=== PATIENT | female | born 1945 | race Caucasian/White ===

== ENCOUNTER 2020-10-30 13:14 | Inpatient (IN) | payer OTHER, MEDICAID ==
[~2020-10-30] VITALS: Ht 157.5 cm; Wt 58.5 kg
[2020-10-30] MEDS ORDERED: PIPERACILLIN/TAZ 3.375G PREMIX 100 ML IV ONE (15:30)
[2020-10-30] MEDS ORDERED: SODIUM CHLORIDE 0.9% 500 ML IV ONE (15:30)
[2020-10-30 16:34] LABS: BG BASE EXCESS -4.3 mmol/L (-2.0-2.0); BG CARBOXYHEMOGLOBIN 0.6 % (0.5-1.5); BG DEOXYHEMOGLOBIN 6.8 % (0.0-5.0); BG HCO3 ACT 17.4 mmol/L (22.0-26.0); BG METHEMOGLOBIN 0.3 % (0.0-1.5); BG OXYGEN SATURATION 93.1 % (92.0-98.5); BG OXYHEMOGLOBIN 92.3 % (94.0-97.0); BG PCO2 23.4 mmHg (35.0-45.0); BG PH 7.488 (7.350-7.450); BG PO2 65.2 mmHg (75.0-100.0); BG SAMPLE SITE RIGHT RADIAL; BG TOTAL HEMOGLOBIN 12.6 g/dL (12.0-18.0); BG VENT MODE ROOM AIR
[2020-10-30 19:24] LABS: BASOPHILS % 0.7 % (0.0-2.0); EOSINOPHILS % 0.3 % (0.0-5.0); HEMATOCRIT. 33.5 % (36.0-48.0); LYMPHOCYTES % 11.4 % (20.0-50.0); MEAN CORPUSCULAR HEMOGLOBIN 31.4 pg (28.0-32.0); MEAN CORPUSCULAR VOLUME 95.6 fL (81.0-99.0); MEAN PLATELET VOLUME 11.5 fl (7.4-10.4); MONOCYTES % 4.1 % (2.0-8.0); NEUTROPHILS % 83.5 % (40.0-76.0); PLATELET 122 x1000/uL (130-400); RED CELL DISTRIBUTION WIDTH 17.7 % (11.6-14.6)
[2020-10-30 19:27] LABS: CHLORIDE 97 mEq/L (98-107)
[2020-10-30 19:29] LABS: INR 1.2; PROTHROMBIN TIME 12.6 sec (9.6-11.0)
[2020-10-30 19:33] LABS: PHOSPHORUS 2.2 mg/dL (2.5-4.9)
[2020-10-31] MEDS ORDERED: CEFTRIAXONE 1 G PREMIX 50 ML IV SCH (09:45)
[2020-10-31] MEDS ORDERED: DEXTROSE 50% WATER 50ML SYRINGE IV PRN (09:45)
[2020-10-31] MEDS ORDERED: ONDANSETRON HCL 4MG/2ML INJ IV PRN (09:45)
[2020-10-31] MEDS ORDERED: ACETAMINOPHEN 325MG TABLET PO PRN (09:45)
[2020-10-31] MEDS: CEFTRIAXONE 1,000 MG in DEXTROSE 5% WATER 50 ML IV SCH (11:00)
[2020-10-31] MEDS ORDERED: ENOXAPARIN 40MG/0.4ML SYR SUBCUT SCH (12:00)
[2020-10-31] MEDS: INSULIN LISPRO 100 UNITS/ML SUBCUT SCH (12:00)
[2020-10-31 12:34] LABS: BASOPHILS % 0.4 % (0.0-2.0); EOSINOPHILS % 0.5 % (0.0-5.0); HEMATOCRIT. 31.3 % (36.0-48.0); HEMOGLOBIN. 10.3 g/dL (12.0-16.0); LYMPHOCYTES % 10.4 % (20.0-50.0); MEAN CORPUSCULAR HEMOGLOBIN 31.3 pg (28.0-32.0); NEUTROPHILS % 82.7 % (40.0-76.0); PLATELET 125 x1000/uL (130-400); RED BLOOD CELL COUNT 3.29 mill/uL (4.2-5.4); RED CELL DISTRIBUTION WIDTH 17.9 % (11.6-14.6)
[2020-10-31 12:40] LABS: CHLORIDE 96 mEq/L (98-107)
[2020-10-31 13:23] LABS: CREATINE KINASE 189 IU/L (26-192)
[2020-10-31 13:24] LABS: CREATINE KINASE MB FRACTION 2.3 ng/mL (0.5-3.6)
[2020-10-31] MEDS: BLOOD SUGAR DIAGNOSTIC STRIP TEST SCH ×2 (13:48→17:00)
[2020-10-31] MEDS ORDERED: VANCOMYCIN 1 G PREMIX 200 ML IV SCH (16:00)
[2020-10-31] MEDS: SODIUM CHLORIDE 0.9% 1,000 ML IV SCH (16:00)
[2020-10-31] MEDS ORDERED: MAGNESIUM 2 G PREMIX 50 ML IV SCH (16:00)
[2020-10-31] MEDS ORDERED: SODIUM PHOS,M-BASIC-D-BASIC 10 MM in DEXT 5% WATER 246.6667 ML IV SCH (17:00)
[2020-10-31] MEDS ORDERED: ENOXAPARIN 60MG/0.6ML SYR SUBCUT SCH (18:15)
[2020-11-01 00:40] LABS: CREATINE KINASE 90 IU/L (26-192)
[2020-11-01 00:41] LABS: CREATINE KINASE MB FRACTION < 1.0 ng/mL (0.5-3.6)
[2020-11-01] MEDS ORDERED: VANCOMYCIN 500 MG PREMIX 100 ML IV SCH (04:00)
[2020-11-01 08:47] LABS: BASOPHILS % 0.3 % (0.0-2.0); EOSINOPHILS % 0.1 % (0.0-5.0); HEMATOCRIT. 26.9 % (36.0-48.0); HEMOGLOBIN. 9.1 g/dL (12.0-16.0); LYMPHOCYTES % 7.7 % (20.0-50.0); MEAN CORPUSCULAR HEMOGLOBIN 31.8 pg (28.0-32.0); MEAN PLATELET VOLUME 10.4 fl (7.4-10.4); MONOCYTES % 8.9 % (2.0-8.0); PLATELET 112 x1000/uL (130-400); RED BLOOD CELL COUNT 2.86 mill/uL (4.2-5.4); RED CELL DISTRIBUTION WIDTH 17.6 % (11.6-14.6)
[2020-11-01 08:59] LABS: CHLORIDE 104 mEq/L (98-107)
[2020-11-01 09:09] LABS: PHOSPHORUS 2.9 mg/dL (2.5-4.9)
[2020-11-01 09:10] LABS: LDL CHOLESTEROL 68 mg/dL (5-100)
[2020-11-01 09:11] LABS: HDL CHOLESTEROL 37 mg/dL (40-59)
[2020-11-01] MEDS ORDERED: POTASSIUM CHLORIDE 20MEQ TABLET SR PO NR (13:00)
[2020-11-01] MEDS ORDERED: MAGNESIUM 2 G PREMIX 50 ML IV NR (13:00)
[2020-11-01] MEDS: CEFTRIAXONE 1,000 MG in DEXTROSE 5% WATER 50 ML IV SCH (13:04)
[2020-11-01] MEDS: BLOOD SUGAR DIAGNOSTIC STRIP TEST SCH (18:58)
[2020-11-01] MEDS: VANCOMYCIN 500 MG PREMIX 100 ML IV SCH (21:00)
[2020-11-02] MEDS: INSULIN LISPRO 100 UNITS/ML SUBCUT SCH ×4 (01:37→21:03)
[2020-11-02] MEDS: BLOOD SUGAR DIAGNOSTIC STRIP TEST SCH ×3 (07:26→21:03)
[2020-11-02] MEDS: ENOXAPARIN 40MG/0.4ML SYR SUBCUT SCH ×2 (08:03→21:02)
[2020-11-02] MEDS: VANCOMYCIN 500 MG PREMIX 100 ML IV SCH ×2 (10:05→22:30)
[2020-11-02 13:10] VITALS: BP 103/59
[2020-11-02 16:00] VITALS: BP 97/56
[2020-11-02] MEDS ORDERED: POTASSIUM CHLORIDE 20MEQ TABLET SR PO NR (17:00)
[2020-11-02] MEDS: CEFTRIAXONE 1,000 MG in DEXTROSE 5% WATER 50 ML IV SCH (17:01)
[2020-11-02] MEDS: SODIUM CHLORIDE 0.9% 1,000 ML IV SCH ×2 (17:02→17:46)
[2020-11-02] MEDS ORDERED: MAGNESIUM 2 G PREMIX 50 ML IV NR (17:30)
[2020-11-02 18:00] VITALS: BP 103/59
[2020-11-02] MEDS ORDERED: CALCIUM GLUCONATE 1GM PREMIX 50 ML IV NR (18:00)
[2020-11-02 20:00] VITALS: BP 116/56
[2020-11-03] VITALS: BP 110/55
[2020-11-03] MEDS: CEFAZOLIN 1000MG PREMIX 50 ML IV SCH ×4 (00:02→23:34)
[2020-11-03 04:00] VITALS: BP 90/56
[2020-11-03] MEDS: BLOOD SUGAR DIAGNOSTIC STRIP TEST SCH ×4 (06:03→21:14)
[2020-11-03 06:21] LABS: CHLORIDE 107 mEq/L (98-107)
[2020-11-03] MEDS: INSULIN LISPRO 100 UNITS/ML SUBCUT SCH ×4 (06:31→21:00)
[2020-11-03 08:00] VITALS: BP 103/55
[2020-11-03] MEDS: SODIUM CHLORIDE 0.9% 1,000 ML IV SCH ×3 (09:20→23:34)
[2020-11-03 12:00] VITALS: BP 106/50
[2020-11-03 16:00] VITALS: BP 107/38
[2020-11-03 20:00] VITALS: BP 124/59
[2020-11-03] MEDS: ENOXAPARIN 40MG/0.4ML SYR SUBCUT SCH (21:13)
[2020-11-04] VITALS (7 sets, daily range): BP systolic 100–121; BP diastolic 46–90
[2020-11-04] MEDS: BLOOD SUGAR DIAGNOSTIC STRIP TEST SCH ×4 (06:21→20:48)
[2020-11-04] MEDS: INSULIN LISPRO 100 UNITS/ML SUBCUT SCH ×4 (06:22→20:49)
[2020-11-04] MEDS: CEFAZOLIN 1000MG PREMIX 50 ML IV SCH ×3 (06:32→23:30)
[2020-11-04] MEDS ORDERED: LIDOCAINE HCL 1% 20ML VIAL (Pyxis) INJ ONE (07:47)
[2020-11-04] MEDS ORDERED: SODIUM BICARBONATE 4% (2.4MEQ) 5ML VIAL IV ONE (07:47)
[2020-11-04 07:52] LABS: BASOPHILS % 0.7 % (0.0-2.0); EOSINOPHILS % 0.9 % (0.0-5.0); HEMATOCRIT. 23.8 % (36.0-48.0); HEMOGLOBIN. 7.9 g/dL (12.0-16.0); LYMPHOCYTES % 18.4 % (20.0-50.0); MEAN CORPUSCULAR HEMOGLOBIN 31.3 pg (28.0-32.0); MEAN CORPUSCULAR VOLUME 94.5 fL (81.0-99.0); MEAN PLATELET VOLUME 10.3 fl (7.4-10.4); MONOCYTES % 12.4 % (2.0-8.0); NEUTROPHILS % 67.6 % (40.0-76.0); PLATELET 83 x1000/uL (130-400); RED BLOOD CELL COUNT 2.52 mill/uL (4.2-5.4); RED CELL DISTRIBUTION WIDTH 17.6 % (11.6-14.6)
[2020-11-04 08:23] LABS: CHLORIDE 112 mEq/L (98-107)
[2020-11-04] MEDS: SODIUM CHLORIDE 0.9% 1,000 ML IV SCH (13:30)
[2020-11-04] MEDS: ENOXAPARIN 40MG/0.4ML SYR SUBCUT SCH (20:21)
[2020-11-05] VITALS: BP 139/62
[2020-11-05] MEDS: SODIUM CHLORIDE 0.9% 1,000 ML IV SCH ×2 (03:21→16:13)
[2020-11-05 04:00] VITALS: BP 124/51
[2020-11-05] MEDS: BLOOD SUGAR DIAGNOSTIC STRIP TEST SCH ×4 (06:45→22:11)
[2020-11-05] MEDS: INSULIN LISPRO 100 UNITS/ML SUBCUT SCH ×4 (07:15→22:11)
[2020-11-05] MEDS: CEFAZOLIN 1000MG PREMIX 50 ML IV SCH ×3 (08:09→23:27)
[2020-11-05] MEDS ORDERED: POTASSIUM CHLORIDE 20MEQ TABLET SR PO SCH (13:00)
[2020-11-05] MEDS ORDERED: MAGNESIUM 2 G PREMIX 50 ML IV SCH (14:00)
[2020-11-05 20:00] VITALS: BP 119/53
[2020-11-06] VITALS: BP 128/59
[2020-11-06 04:00] VITALS: BP 121/62
[2020-11-06] MEDS: CEFAZOLIN 1000MG PREMIX 50 ML IV SCH ×3 (07:01→22:35)
[2020-11-06] MEDS: INSULIN LISPRO 100 UNITS/ML SUBCUT SCH ×4 (07:01→21:02)
[2020-11-06] MEDS: BLOOD SUGAR DIAGNOSTIC STRIP TEST SCH ×4 (07:02→21:03)
[2020-11-06 07:29] LABS: HEMATOCRIT. 22.4 % (36.0-48.0); HEMOGLOBIN. 7.5 g/dL (12.0-16.0); MEAN CORPUSCULAR HEMOGLOBIN 31.4 pg (28.0-32.0); MEAN CORPUSCULAR VOLUME 94.2 fL (81.0-99.0); MEAN PLATELET VOLUME 10.3 fl (7.4-10.4); PLATELET 81 x1000/uL (130-400); RED BLOOD CELL COUNT 2.38 mill/uL (4.2-5.4); RED CELL DISTRIBUTION WIDTH 17.6 % (11.6-14.6)
[2020-11-06 07:46] LABS: CHLORIDE 109 mEq/L (98-107)
[2020-11-06 07:57] LABS: PHOSPHORUS 1.4 mg/dL (2.5-4.9)
[2020-11-06 08:00] VITALS: BP 119/64
[2020-11-06] MEDS ORDERED: POTASSIUM CHLORIDE 20MEQ TABLET SR PO SCH (10:00)
[2020-11-06 12:00] VITALS: BP 112/61
[2020-11-06 16:00] VITALS: BP 121/68
[2020-11-06 20:00] VITALS: BP 119/62
[2020-11-06] MEDS ORDERED: POTASSIUM CHLORIDE 20MEQ TABLET SR PO NR (22:00)
[2020-11-06 22:56] LABS: NUCLEATED RED BLOOD CELLS 1 /100 WBC
[2020-11-06 22:57] LABS: PLATELET ESTIMATE DECREASED
[2020-11-06] MEDS ORDERED: DEXT 5% IV NR (23:00)
[2020-11-06] MEDS ORDERED: WATER IV NR (23:00)
[2020-11-06] MEDS ORDERED: POTASSIUM PHOS M BASIC D BASIC IV NR (23:00)
[2020-11-07] VITALS: BP 109/59
[2020-11-07 04:00] VITALS: BP 107/50
[2020-11-07] MEDS: INSULIN LISPRO 100 UNITS/ML SUBCUT SCH ×4 (07:12→20:56)
[2020-11-07] MEDS: BLOOD SUGAR DIAGNOSTIC STRIP TEST SCH ×4 (07:12→20:38)
[2020-11-07 08:00] VITALS: BP 113/61
[2020-11-07 08:07] LABS: KAPPA LT CHAINS FREE SERUM 22.5 mg/L (3.3-19.4); KAPPA/LAMBDA RATIO 0.51 (0.26-1.65)
[2020-11-07] MEDS: CEFAZOLIN 1000MG PREMIX 50 ML IV SCH ×3 (09:30→23:07)
[2020-11-07 12:00] VITALS: BP 130/84
[2020-11-07 16:00] VITALS: BP 104/60
[2020-11-07] MEDS ORDERED: ASPI-1497 MT (16:18)
[2020-11-07] MEDS ORDERED: ALPR0.25 MT (16:18)
[2020-11-07] MEDS ORDERED: LISI40TA4 MT (16:26)
[2020-11-07] MEDS ORDERED: ATOR40TA70 MT (16:26)
[2020-11-07] MEDS ORDERED: METF-416 MT (16:26)
[2020-11-07] MEDS ORDERED: HYDR-4067 MT (16:26)
[2020-11-07] MEDS ORDERED: OXYB5TAB17 MT (16:29)
[2020-11-07] MEDS ORDERED: OMEP20CA14 MT (16:30)
[2020-11-07 20:00] VITALS: BP 100/38
[2020-11-08] VITALS: BP 113/92
[2020-11-08 04:00] VITALS: BP 118/64
[2020-11-08] MEDS: BLOOD SUGAR DIAGNOSTIC STRIP TEST SCH ×4 (05:41→21:31)
[2020-11-08] MEDS: INSULIN LISPRO 100 UNITS/ML SUBCUT SCH ×4 (06:32→21:48)
[2020-11-08 08:00] VITALS: BP 108/61
[2020-11-08] MEDS: CEFAZOLIN 1000MG PREMIX 50 ML IV SCH ×2 (09:18→14:45)
[2020-11-08 12:00] VITALS: BP 113/60
[2020-11-08 16:00] VITALS: BP 107/68
[2020-11-08 20:00] VITALS: BP 119/44
[2020-11-09] VITALS: BP 100/55
[2020-11-09] MEDS: CEFAZOLIN 1000MG PREMIX 50 ML IV SCH ×4 (02:42→23:35)
[2020-11-09 04:00] VITALS: BP 103/60
[2020-11-09] MEDS: BLOOD SUGAR DIAGNOSTIC STRIP TEST SCH ×4 (06:38→21:43)
[2020-11-09] MEDS: INSULIN LISPRO 100 UNITS/ML SUBCUT SCH ×4 (06:38→21:42)
[2020-11-09 08:00] VITALS: BP 125/62
[2020-11-09 12:00] VITALS: BP 121/79
[2020-11-09 16:00] VITALS: BP 119/66
[2020-11-09 20:00] VITALS: BP 108/63
[2020-11-10] VITALS: BP 109/67
[2020-11-10 04:00] VITALS: BP 110/64
[2020-11-10] MEDS: INSULIN LISPRO 100 UNITS/ML SUBCUT SCH ×4 (06:38→21:00)
[2020-11-10] MEDS: BLOOD SUGAR DIAGNOSTIC STRIP TEST SCH ×4 (06:38→21:39)
[2020-11-10] MEDS: CEFAZOLIN 1000MG PREMIX 50 ML IV SCH ×2 (06:39→15:30)
[2020-11-10 08:00] VITALS: BP 98/57
[2020-11-10] MEDS ORDERED: IXAZ3CAP PO (08:40)
[2020-11-10] MEDS ORDERED: LENA15CA2 PO (08:40)
[2020-11-10] MEDS ORDERED: DEXA4TAB PO (08:40)
[2020-11-10 12:00] VITALS: BP 131/61
[2020-11-10 16:00] VITALS: BP 126/74
[2020-11-10 20:00] VITALS: BP 113/58
[2020-11-11] MEDS: CEFAZOLIN 1000MG PREMIX 50 ML IV SCH ×3 (00:01→15:30)
[2020-11-11 01:35] VITALS: BP 119/48
[2020-11-11 04:00] VITALS: BP 106/54
[2020-11-11] MEDS: INSULIN LISPRO 100 UNITS/ML SUBCUT SCH ×3 (06:42→12:50)
[2020-11-11] MEDS: BLOOD SUGAR DIAGNOSTIC STRIP TEST SCH ×3 (06:43→12:20)
[2020-11-11 08:00] VITALS: BP 116/59
[2020-11-11] MEDS ORDERED: DEXAMETHASONE 4MG TABLET PO SCH (09:00)
[2020-11-11] MEDS ORDERED: REVLIMID 15 MG PO SCH (09:00)
[2020-11-11] MEDS ORDERED: NINLARO PO SCH (09:00)
[2020-11-11 12:00] VITALS: BP 119/56
[2020-11-11 15:33] LABS: BASOPHILS % 0.3 % (0.0-2.0); HEMATOCRIT. 25.3 % (36.0-48.0); HEMOGLOBIN. 8.1 g/dL (12.0-16.0); LYMPHOCYTES % 12.6 % (20.0-50.0); MEAN CORPUSCULAR HEMOGLOBIN 30.5 pg (28.0-32.0); MEAN CORPUSCULAR VOLUME 95.2 fL (81.0-99.0); MEAN PLATELET VOLUME 9.8 fl (7.4-10.4); MONOCYTES % 2.2 % (2.0-8.0); NEUTROPHILS % 84.9 % (40.0-76.0); PLATELET 140 x1000/uL (130-400); RED BLOOD CELL COUNT 2.66 mill/uL (4.2-5.4); RED CELL DISTRIBUTION WIDTH 18.2 % (11.6-14.6)
[2020-11-11 15:42] LABS: CHLORIDE 102 mEq/L (98-107)
[2020-11-11 16:00] VITALS: BP 129/59
[2020-11-11 16:37] VITALS: BP 120/59
== END 2020-11-11 17:12 | DRG 871 ==
LOC: ER 13:23 → MICUSO 10-31 03:47 → 7EST 11-02 10:57 → 5WST 11-02 11:34 → 6EST 11-11 12:19
PROVIDERS: ADMIT Family Medicine; ATTEND Family Medicine
PROC: 02HV33Z Insertion of Infusion Device into Superior Vena Cava, Percutaneous Approach (ICD-10-PCS; principal; 2020-11-04)
PROC: B5181ZA Fluoroscopy of Superior Vena Cava using Low Osmolar Contrast, Guidance (ICD-10-PCS; 2020-11-04)
PROC: B548ZZA Ultrasonography of Superior Vena Cava, Guidance (ICD-10-PCS; 2020-11-04)
PROC: 0HBRXZZ Excision of Toe Nail, External Approach (ICD-10-PCS; 2020-11-04)
PROC: 0HBRXZZ Excision of Toe Nail, External Approach (ICD-10-PCS; 2020-11-04)
PROC: 0HBRXZZ Excision of Toe Nail, External Approach (ICD-10-PCS; 2020-11-04)
PROC: 0HBRXZZ Excision of Toe Nail, External Approach (ICD-10-PCS; 2020-11-04)
PROC: 0HBRXZZ Excision of Toe Nail, External Approach (ICD-10-PCS; 2020-11-04)
PROC: 0HBRXZZ Excision of Toe Nail, External Approach (ICD-10-PCS; 2020-11-04)
PROC: 0HBRXZZ Excision of Toe Nail, External Approach (ICD-10-PCS; 2020-11-04)
PROC: 0HBRXZZ Excision of Toe Nail, External Approach (ICD-10-PCS; 2020-11-04)
PROC: 0HBRXZZ Excision of Toe Nail, External Approach (ICD-10-PCS; 2020-11-04)
PROC: 0HBRXZZ Excision of Toe Nail, External Approach (ICD-10-PCS; 2020-11-04)
DX: A41.89 Other specified sepsis (principal); G93.41 Metabolic encephalopathy; J15.211 Pneumonia due to Methicillin susceptible Staphylococcus aureus; C90.00 Multiple myeloma not having achieved remission; D61.818 Other pancytopenia; E44.0 Moderate protein-calorie malnutrition; E87.1 Hypo-osmolality and hyponatremia; E87.2 Acidosis; R65.20 Severe sepsis without septic shock; E11.65 Type 2 diabetes mellitus with hyperglycemia; E78.5 Hyperlipidemia, unspecified; E83.39 Other disorders of phosphorus metabolism; E83.42 Hypomagnesemia; I10 Essential (primary) hypertension; L60.0 Ingrowing nail; Z20.822 Contact with and (suspected) exposure to COVID-19; S90.421A Blister (nonthermal), right great toe, initial encounter; X58.XXXA Exposure to other specified factors, initial encounter; Y93.89 Activity, other specified; Z68.23 Body mass index [BMI] 23.0-23.9, adult; Y92.89 Other specified places as the place of occurrence of the external cause; Y99.8 Other external cause status; Z86.73 Personal history of transient ischemic attack (TIA), and cerebral infarction without residual deficits; Z79.899 Other long term (current) drug therapy
CPT/HCPCS: 36415; 36573; 36600; 71045; 80048; 80053; 80061; 80202; 82375; 82550; 82553; 82784; 82805; 82962; 83605; 83615; 83735; 83883; 84100; 84145; 84484; 85025; 87077; 87186; 93005; 93306; 93923; 97116; 97162; 97530; 99285; A6261; C1725; C1769; C1893; J0610; J0690; J0696; J1650; J1815; J2543; J3370; J3475; J3490; J7030; J7040; J7060; U0003